=== PATIENT | male | born 1995 | race Hispanic/Latino ===

== ENCOUNTER 2025-01-17 20:09 | Emergency (ER) | payer SELFPAY ==
[2025-01-17 20:12] VITALS: BP 135/94
--- NOTE | 2025-01-17 20:49 | ED.SKININJ ---
HPI-Injury
General
Chief Complaint: Skin Surface Trauma
Source: patient
Time Seen by Provider: 01/17/25 20:22
History of Present Illness-Injury
Initial Injury comments:
29-year-old male presents with laceration to left hand he sustained today. He cut himself with a bread knife while at work. He denies numbness or tingling or loss of function. No other complaints at this time
Phy Exam
Physical Exam
Physical Exam:
General: Well-appearing male no acute distress
Skin: 3 cm laceration volar aspect left hand at the base of the left index finger superficial nature without nerve vascular or tendon involvement. He maintains full range of motion of all the fingers good sensation and brisk capillary refill
Course
Vital Signs
Initial and Last Documented VS:
Initial Vital Signs
Temp Pulse Resp BP Pulse Ox
98.4 F 75 16 135/94 99
01/17/25 20:12 01/17/25 20:12 01/17/25 20:12 01/17/25 20:12 01/17/25 20:12
Last Documented Vital Signs
Temp Pulse Resp BP Pulse Ox
98.4 F 75 16 135/94 99
01/17/25 20:12 01/17/25 20:12 01/17/25 20:12 01/17/25 20:12 01/17/25 20:12
MDM/Problems Addressed
Differential Diagnosis Includes:
Laceration left hand. This is copiously irrigated with saline solution and anesthetized in a local fashion using 1% plain lidocaine. 5-0 Prolene sutures were required in a running fashion to obtain wound edge approximation hemostasis. Total of 7
sutures were required. Dressing was applied wound care instructions were given he was instructed to have his sutures removed in 12 to 14 days
*Pulse Oximetry
SaO2: 99
Oxygen Mode of Delivery: Room air
Patient hypoxic: no
*Critical Care Note
Total Time (30-74mins, 75-104mins- exclusive of procedures): Not Applicable
ED Attending Note
-
Portions of this chart may have been created with voice recognition software.� Occasional wrong word or��sound alike� substitutions may have occurred due to the inherent limitations of voice recognition software.
Discharge Plan
Departure
Patient Disposition: Home (Routine Discharge)
Date of Disposition: 01/17/25
Time of Disposition: 20:52
Patient with high blood pressure during this ER visit?: No
Discharge Problem:
Laceration
Instructions: Laceration Repair With Stitches (DC)
Activity Restrictions/Additional Instructions:
Keep clean. Have sutures removed in 12 to 14 days. Return if needed otherwise
Interventions
Interventions:
*Risk Screen - Suicide Last Done: 01/17/25 20:12
*General Assessment Last Done: 01/17/25 20:12
*Neglect/Abuse Screening Last Done: 01/17/25 20:12
*ED- Fall Risk Assessment Last Done: 01/17/25 20:45
ED-Skin Assessment Last Done: 01/17/25 20:45
Discharge Date and Time
Print Language: PASHTO
== END 2025-01-17 21:04 | disposition home or self-care (01) ==
LOC: EMR 20:09
PROVIDERS: EMERGENCY PHYSICIAN Emergency Medicine
DX: S61.412A Laceration without foreign body of left hand, initial encounter (principal); W26.0XXA Contact with knife, initial encounter; Y92.89 Other specified places as the place of occurrence of the external cause; Y99.0 Civilian activity done for income or pay
CPT/HCPCS: 12002; 99282